=== PATIENT | male | born 1960 | race Caucasian/White ===

== ENCOUNTER 2023-12-22 07:14 | Day surgery (SDC) | payer BC, SELFPAY ==
--- NOTE | 2023-12-10 11:25 | HPS.HSE ---
Family Physician
-
Family Physician: NOT KNOW UNKNOWN - PT DOES
Chief Complaint
-
Paroxysmal atrial fibrillation.
History of Present Illness
The patient is a 63-year-old male presenting today for atrial fibrillation. The patient reports mild dyspnea on exertion and intermittent palpitations likely secondary to this diagnosis. He previously underwent pulmonary vein isolation in
2008. He is on current pharmacological therapy with Flecainide and Nebivolol. He takes Eliquis for oral anticoagulation. He is interested in pursuing pulmonary vein isolation again for further arrhythmia management. Prior to undergoing pulmonary
vein isolation, he will need a transesophageal echocardiogram to officially rule out a left atrial appendage thrombus. He denies any current complaints today such as chest pain, shortness of breath, palpitations, nausea, vomiting, diarrhea,
lightheadedness, dizziness, cough, sore throat, or fever.
Medical History
Past Medical History
Past Medical History: Reports Other
Additional Past Medical History:
1. Atrial fibrillation, status post pulmonary vein isolation 2008; pharmacological therapy with Flecainide and Nebivolol, oral anticoagulation with Eliquis.
2. Hypertension.
3. Mild mitral regurgitation.
4. Mild left ventricular hypertrophy.
5. Colon polyps.
6. Diverticulosis.
7. Obesity, BMI 30.9.
Past Surgical History: Reports Other
Additional Past Surgical History:
1. Pulmonary vein isolation.
2. Cardioversion x3.
3. [place] teeth extraction.
4. Colonoscopy x3.
Social History
Tobacco: Non-smoker
Alcohol: Other (Social)
Personal:
Living: Other (He lives with his in a 2 story home. )
Family History
Family History: Not pertinent
Allergies / Home Medications
Allergy/Medication List:
MEDICATIONS:�
1. Apixaban 5 mg p.o. twice a day.
2. Flecainide 100 mg p.o. twice a day.
3. Centrum multivitamin 1 tab p.o. daily.
4. Nebivolol 5 mg p.o. at bedtime.
5. Olmesartan-hydrochlorothiazide 40-25 mg p.o. at bedtime.
�
ALLERGIES:� No known allergies.
Review of Systems
-
A 12 point ROS was completed and negative except as noted: Yes
Physical Exam
Vital Signs
VITAL SIGNS: Blood pressure 139/99, heart rate 63, respirations 18, pulse ox 96%.
Height 6 feet, weight 103.2 kg, BMI 30.9.
Physical Exam
General: Well Developed, Well Nourished and No Apparent Distress
HEENT: NormoCephalic, Moist mucous membranes, Atraumatic and PERRLA
Respiratory: Clear
Cardiac: Irregular Rhythm
GI: Soft, Non Tender, Non Distended and Other (Obese. )
Musculoskeletal: Normal Gait & Station
Skin: Warm and Dry
Neuro: AO x 3 and Nonfocal/grossly intact
Laboratory Results
-
DIAGNOSTIC STUDIES as of 12/04/2023: White blood cell count 6.4, hemoglobin 14.3, platelet count 256. PT 14.1, INR 1.10. Sodium 136, potassium 4.3, BUN 14, creatinine 0.9, glucose 90, calcium 8.9, magnesium 2.0, AST 24, ALT 19, albumin 4.3. Blood
type O-positive.
�
EKG 12/04/2023: Atrial flutter with variable AV block. Nonspecific ST and T-wave abnormality.
�
Chest CT 12/04/2023: Short segment common vestibule for the left superior and inferior pulmonary veins, fairly commonly seen and considered normal variant. Partial non-opacification of the left atrial appendage likely related to incomplete contrast
filling; however, cannot rule out thrombus. The left atrium is otherwise well opacified.
�
Echocardiogram 05/28/2018: Ejection fraction is 55-60 percent. Mild left ventricular hypertrophy. The right ventricular size is mildly enlarged. Mildly dilated right atrium. Mild mitral valve regurgitation.
Impression/Plan
-
IMPRESSION/PLAN:
1. Atrial fibrillation: The patient is interested in pursuing pulmonary vein isolation for further arrhythmia management on 12/24/2023. Prior to undergoing this, however, he will undergo a pre-procedural transesophageal echocardiogram with Dr. Neri
Jerry on 12/22/2023. The benefits and risks of the procedure have been explained to the patient. The patient understands these risks and wishes to proceed.
[2023-12-22 07:29] VITALS: BMI 29.4
== END 2023-12-22 09:48 | disposition home or self-care (01) ==
LOC: CATH 07:14
PROVIDERS: ATTENDING PHYSICIAN Nuclear Medicine Nuclear Cardiology; FAMILY PHYSICIAN Nurse Practitioner; OTHER PHYSICIAN Internal Medicine Cardiovascular Disease
DX: I08.3 Combined rheumatic disorders of mitral, aortic and tricuspid valves (principal); I48.91 Unspecified atrial fibrillation; R06.09 Other forms of dyspnea; I10 Essential (primary) hypertension; Z79.01 Long term (current) use of anticoagulants
CPT/HCPCS: 93312; 93320; 93325

== ENCOUNTER 2023-12-24 08:15 | Day surgery (SDC) | payer BC, SELFPAY ==
[2023-12-04 13:21] LABS: % Basophils 0.8 % (0-2); % Eosinophils 0.6 % (0-6); % Immature Granulocytes 0.3 % (0-0.5); % Lymphocytes 26.7 % (20.5-51.1); % Monocytes 6.7 % (1.7-9.3); % Neutrophils 64.9 % (42.2-75.2); Absolute Basophils 0.1 10^3/uL (0-0.2); Absolute Lymphocytes 1.7 10^3/uL (1.2-3.4); Absolute Monocytes 0.4 10^3/uL (0.1-0.6); Absolute Neutrophils 4.2 10^3/uL (1.4-6.5); Hematocrit 40.5 % (39.0-52.0); Hemoglobin 14.3 g/dL (13.0-18.0); Mean Corp Hgb Conc. 35.3 g/dL (33.0-37.0); Mean Corpuscular Hgb 30.7 pg (27.0-31.0); Mean Corpuscular Volume 86.9 fL (80.0-94.0); Mean Platelet Volume 8.6 fL (7.4-10.4); Nucleated Red Blood Cells % 0 % (-); Platelet Count 256 10^3/uL (130-400); Red Blood Cell Count 4.66 10^6/uL (4.70-6.10); Red Cell Dist. Width 12.7 % (11.5-14.5); White Blood Cell Count 6.4 10^3/uL (4.8-10.8)
[2023-12-04 13:34] LABS: PT 14.1 Sec (11.4-14.6)
[2023-12-04 13:37] LABS: ALT (SGPT) 19 U/L (0-50); AST (SGOT) 24 U/L (17-59); Albumin 4.3 g/dl (3.5-5.0); Alkaline Phosphatase 107 U/L (38-126); Blood Urea Nitrogen 14 mg/dl (9-20); Calcium 8.9 mg/dl (8.4-10.2); Carbon Dioxide 31 mmol/L (22-30); Chloride 102 mmol/L (98-107); Glucose 90 mg/dl (70-99); Potassium 4.3 mmol/L (3.5-5.1); Sodium 136 mmol/L (135-145); eGFR > 60.00
[2023-12-08 11:43] VITALS: BMI 30.9
[2023-12-24] VITALS (18 sets, daily range): BP systolic 73–119; BP diastolic 48–92
[2023-12-24 11:33] LABS: ACT-LR - POC 240 Seconds (116-155)
[2023-12-24 11:54] LABS: ACT-LR - POC 242 Seconds (116-155)
[2023-12-24 12:19] LABS: ACT-LR - POC 269 Seconds (116-155)
[2023-12-24 12:43] LABS: ACT-LR - POC 316 Seconds (116-155)
[2023-12-24 13:09] LABS: ACT-LR - POC 329 Seconds (116-155)
[2023-12-24 13:43] LABS: ACT-LR - POC 268 Seconds (116-155)
--- NOTE | 2023-12-24 14:21 | ITS.CL.ABL ---
Merchandiser - Ablation
Ablation
Procedure Report:
ELECTROPHYSIOLOGY ABLATION STUDY
DATE:: December 24, 2023 REFERRING: Dr. Eliceo Bhatia
INDICATION: Persistent supraventricular tachycardia in the form of atrial fibrillation. Prior pulmonary vein isolation in 2008 x 8 mm Blazer
HISTORY: See H and P. As above
ANTIARRHYTHMIC DRUG: Flecainide use
PRE-PROCEDURE MAURO: No atrial thrombus
PRESENTING RHYTHM: Double loop reentry left atrial flutter with active loop through the posterior wall and the mitral isthmus. Of note the patient is on class Ic antiarrhythmic drug therapy
'TIME-OUT': called and confirmed.
SEDATION/ANESTHESIA: provided via the anesthesia department using general anesthesia (LMA).
INTRAVENOUS/ARTERIAL ACCESS:
Right femoral venous - 8Fr
Left femoral venous - 8 Fr, 6 Fr
Ultrasound guidance for bilateral femoral vein access was utilized by me to obtain access with demonstration of normal anatomy
CHADS-VASC Score:
HAS-Bled Score
PROCEDURE:
1. A decapolar CS catheter was placed within the CS for mapping and pacing. This was also used as the reference catheter for the 3-D map. The patient demonstrated double loop reentry left atrial flutters involving the posterior wall and mitral
isthmus. This was diagnosed after transseptal puncture and despite posterior wall isolation and a mitral isthmus line from the left inferior pulmonary vein to the mitral valve tachycardia persisted the patient was cardioverted to sinus rhythm and
block was confirmed in the left atrial posterior wall and an isthmus transit time of 116 ms across the isthmus was noted. Patient noninducible for tachyarrhythmia after cardioversion. The patient also had his pulmonary veins reisolated. At
baseline the left superior, left inferior, and right superior pulmonary veins were isolated ostially from the prior 2009 ablation and wide venetie ablation was performed around all 4 pulmonary veins contiguous to the posterior wall isolation and the
mitral isthmus line.
2. The intracardiac ultrasound catheter was positioned in the RA to identify the FO for targeting of transseptal puncture, assist in identification of the pulmonary vein ostia, monitoring pre and post ablation pulmonary vein flow velocities,
monitoring for 'bubble' formation during RF application as a sign of thermal injury, and to monitor for pericardial effusion during mapping and ablation procedure. Left atrial size, LV ejection fraction, and pulmonary vein flows were monitored
pre and post ablation procedure. The other valves were inspected and found to be free of significant regurgitation or stenosis.
3. Half of the calculated heparin bolus was administered prior to the first transeptal puncture. Transseptal puncture was performed to diagnose RA and LA pressure so that safety of LA mapping and ablation could be further assessed, and to access
the left atrium and pulmonary veins for mapping and ablation. This entailed advancing an 10fr sheath with dilator into the superior vena cava and withdrawing both (monitoring intracardiac ultrasound, fluoroscopy and tip pressure) with the tip
oriented toward the atrial septum. The fossa ovalis was engaged (indicated by sudden displacement of the sheath tip as well as tenting of the fossa seen on intracardiac ultrasound). Left atrial access required a pass with the [place] needle
extended. Left atrial catheter position was confirmed by pressure monitoring (RA mean pressure 8 mm Hg and LA mean presure 14 mm Hg), LA saturation ( 99 %), as well as fluoroscopy. The sheath was advanced over the dilator and positioned in the
left atrium. The remainder of the calculated heparin bolus was administered and heparin was
infused to maintain ACT at 300 -350 seconds throughout the case.
4. RA pacing was performed via the proximal decapolar poles and LA pacing was performed via the distal decapolr poles.
5. A quadrapolar catheter was first positioned at the His position for His Bundle recording which was tagged via the 3-D Navex sytem, and then passed to the RVA for RV pacing and recording.
6. The multipolar grid and 4 mm tactic cath LIPV, LSPV, RSPV and the RIPV.
7. Next, a 3-D map was created using Navex. A 3-D reconstructed CT image was compared to the 3-D Navex map to assist in anatomic interpretation, mapping and ablation. The CT image and the NavX image were fused.
8. As above all 4 pulmonary veins were isolated and wide venetie fashion. Left atrial posterior wall was also isolated with careful temperature monitoring and there was sitting in the esophagus just outside the left veins and we had to carefully
move quickly across the posterior wall and limited ablation in those regions.
The mitral isthmus was also ablated with bidirectional block to interest was conduction time of 160 ms
9. Normal sinus node and AV node function were noted. Patient did develop right bundle branch Simeon C at approximately 110 beats a minute.
PULMONARY VEIN FLOW VELOCITIES:
LSPV LIPV RSPV RIPV
Pre-Ablation 0.4 m/s 0.4 m/s 0.6 m/s 0.6 m/s
Post-Ablation unchanged
TOTAL FLOURO TIME: 31 minutes
TOTAL RF DURATION: 40 minutes
REVERSAL OF HEPARIN: 40 mg of protamine, slow IV administration
COMPLICATIONS:
None
Intracardiac US shows no pericardial effusion post ablation.
SUMMARY:
Complex left atrial mapping and ablation.
Reisolation of all 4 pulmonary veins in addition to left atrial posterior wall isolation and a mitral line from the left inferior pulmonary vein to the mitral valve annulus laterally. Cold arrhythmia was delivered into the left atrial flutter and
the patient was on a class Ic antiarrhythmic drug therapy. He was approximate 2.5 L positive volume and we will scan his bladder and consider IV diuretic prior to discharge.
RECOMMENDATIONS:
1. Admit to monitored bed.
2. Resume anticoagulation
3. Discontinue class Ic antiarrhythmic agent if the patient has further recurrence would consider class III antiarrhythmic with dofetilide. We would have to discontinue the patient's hydrochlorothiazide if that were the case.
4. Out of bed in 4 hours
Copy to: Dr. Eliceo Bhatia
--- NOTE | 2023-12-24 18:34 | PTCARENOTE ---
Rec'd Pt post PVI, A,A+Ox3, no c/o pain. Bilat femoral dsgs D+I. +2 DP pulses.
[2023-12-24] MEDS: ELIQUIS 5 MG PO (19:57)
--- NOTE | 2023-12-24 21:24 | PTCARENOTE ---
assumed care of patient at the change of shift. AAOx3, resting in the chair. denies any pain. b/l groin sites, CDI. + pulses. SR with a BBB on tele, 60s-70s. bp stable. patient states urinating in the toilet, no pain, some blood per patient.
reviewed plan of care with patient and verbalized understanding. independent in the room. call delatorre within reach.
[2023-12-24] MEDS: BYSTOLIC 5 MG PO (21:59)
[2023-12-25 05:04] VITALS: BP 96/61
[2023-12-25 05:17] VITALS: BMI 30.9
[2023-12-25 06:15] LABS: Hematocrit 37.6 % (39.0-52.0); Mean Corp Hgb Conc. 34.6 g/dL (33.0-37.0); Mean Corpuscular Volume 89.7 fL (80.0-94.0); Mean Platelet Volume 9.1 fL (7.4-10.4); Platelet Count 240 10^3/uL (130-400); Red Blood Cell Count 4.19 10^6/uL (4.70-6.10); Red Cell Dist. Width 13.5 % (11.5-14.5); White Blood Cell Count 8.9 10^3/uL (4.8-10.8)
[2023-12-25 06:24] LABS: Blood Urea Nitrogen 19 mg/dl (9-20); Calcium 7.9 mg/dl (8.4-10.2); Carbon Dioxide 26 mmol/L (22-30); Chloride 103 mmol/L (98-107); Estimated Creatinine Clearance 96 ml/min; Glucose 117 mg/dl (70-99); Magnesium 1.9 mg/dl (1.6-2.3); Potassium 3.8 mmol/L (3.5-5.1); Sodium 134 mmol/L (135-145); eGFR > 60.00
[2023-12-25 07:41] VITALS: BP 104/71
--- NOTE | 2023-12-25 09:01 | W.PN.CARDCBS ---
Today's Communication / Plan
-
stable for d/c home
Impression / Plan
-
PCP: CHANDANA Pike
CDY: Jairo Gerardo MD
Impression:
Symptomatic recurrent Afib
Prior PVI 2008
s/p redo PVI, Aflutter ablation 12/24/23
HTN
Mild MR
Mild LVH
Diverticulosis
SUMMARY:�
Complex left atrial mapping and ablation.
Reisolation of all 4 pulmonary veins in addition to left atrial posterior wall isolation and a mitral line from the left inferior pulmonary vein to the mitral valve annulus laterally.� Cold arrhythmia was delivered into the left atrial flutter and
the patient was on a class Ic antiarrhythmic drug therapy.� He was approximate 2.5 L positive volume and we will scan his bladder and consider IV diuretic prior to discharge.
Plan:
post ablation feels good
groin stable
tele SR no sig ectopy
OAC Eliquis
Stop Flecainide
continue nebivolol
HTN - continue olmesartan-HCTZ
Activity restrictions reviewed
if the patient has further recurrence would consider class III antiarrhythmic with dofetilide, HCTZ would have to be d/c'ed
f/u Dr. Gerardo 1 mo
home today
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
Subjective
Date of Service: December 25, 2023
no cp, sob, mild sore throat
Objective
Labs:
12/25/23 05:05
12/25/23 05:05
Labs
Hgb 13.0 g/dL (13.0-18.0) 12/25/23 05:05
Hct 37.6 % (39.0-52.0) L 12/25/23 05:05
Plt Count 240 10^3/uL (130-400) 12/25/23 05:05
PT 14.1 Sec (11.4-14.6) 12/04/23 13:04
INR 1.10 12/04/23 13:04
Sodium 134 mmol/L (135-145) L 12/25/23 05:05
Potassium 3.8 mmol/L (3.5-5.1) 12/25/23 05:05
BUN 19 mg/dl (9-20) 12/25/23 05:05
Creatinine 1.0 mg/dL (0.7-1.3) 12/25/23 05:05
Glucose 117 mg/dl (70-99) H 12/25/23 05:05
Vital Signs and I&O:
Vital Signs
Temp Pulse Resp BP Pulse Ox
98 F 64 20 104/71 96
12/25/23 07:38 12/25/23 08:00 12/25/23 07:38 12/25/23 07:41 12/25/23 07:38
Vital Signs
Temp Pulse Resp BP Pulse Ox
98 F 64 20 104/71 96
12/25/23 07:38 12/25/23 08:00 12/25/23 07:38 12/25/23 07:41 12/25/23 07:38
Intake & Output
12/23/23 12/24/23 12/25/23 12/26/23
06:59 06:59 06:59 06:59
Intake Total 4200 / 4200
Output Total 1000 / 1000
Balance 3200 / 3200
Physical Exam
Physical Exam
NAD< AOx3
S1, S2, RRR
CTAB< non labored, no wheeze
SNTND Bsx4
b/l groins c/d/i no HT, soft
--- NOTE | 2023-12-25 09:02 | CM ---
Reviewed chart. Met with Mr. Laguna to review discharge plans. He states prior to admission he resides with his spouse in a two story home with two steps to enter. He stats he has a first floor set-up. He states prior to admission he was
independent with ambulation and adls. He states he does not have any DME in the home. He states he has a prescription plan and uses [facility]. The discharge plan is to return home with his spouse when medically stable.
--- NOTE | 2023-12-25 09:11 | W.DS.TRANS ---
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
-
Discharge Instructions:
Sleep Apnea Risk Intermediate
Discharge Diagnosis/Procedures Afib post ablation
Diet Low Sodium
Driving Restrictions No driving for 24 hours
Stop these medications: Stop Flecainide
Instructions:
Stand-Alone Forms: DC Instructions- Cath/EP Lab
Changes to Home Medications: Yes
Discharge Medications:
DC Medications w/original date entered in [facility]
apixaban 5 mg tablet (Eliquis) 5 mg PO Q12H 12/02/23
multivitamin with minerals-folic acid 80 mcg chewable tablet (Centrum Adult 50 Plus) 1 tab PO DAILY 12/02/23
nebivolol 5 mg tablet 5 mg PO HS 12/02/23
olmesartan 40 mg-hydrochlorothiazide 25 mg tablet 1 tab PO DAILY 12/02/23
Home Medication Changes
stop flecainide
Pending Results: No
[2023-12-25] MEDS: ELIQUIS 5 MG PO (09:15)
[2023-12-25 09:17] VITALS: BP 119/79
[2023-12-25] MEDS: ORETIC 25 MG PO (09:18)
[2023-12-25] MEDS: BENICAR 40 MG PO (09:18)
--- NOTE | 2023-12-25 10:30 | PTCARENOTE ---
Received patient this morning oob ambulating in his room, no complaints offered. Seen by Dr. Houser and ok for discharge. Reviewed discharge instructions with the patient and he states his understanding. Patient discharged home with his .
== END 2023-12-25 10:22 | disposition home or self-care (01) ==
LOC: CATH 08:15
PROVIDERS: Nurse Practitioner Adult Health; ATTENDING PHYSICIAN Internal Medicine Cardiovascular Disease; FAMILY PHYSICIAN Nurse Practitioner; OTHER PHYSICIAN Internal Medicine Cardiovascular Disease
DX: R06.09 Other forms of dyspnea (principal); I10 Essential (primary) hypertension; Z86.010 Personal history of colon polyps; K57.90 Diverticulosis of intestine, part unspecified, without perforation or abscess without bleeding; E66.9 Obesity, unspecified; Z68.30 Body mass index [BMI] 30.0-30.9, adult; Z79.01 Long term (current) use of anticoagulants
CPT/HCPCS: C1732; C1894; C1730; C1766; C2630; C1892; C1759; 36415; 75572; 76937; 80048; 80053; 83735; 85025; 85027; 85347; 85610; 86850; 86900; 86901; 93005; 93655; 93656; 93657; Q9967